=== PATIENT | female | born 1945 | race Caucasian/White ===

== ENCOUNTER 2017-09-30 09:46 | Inpatient (IN) | payer MEDICARE, OTHER ==
[2017-09-30 09:49] VITALS: BMI 28.7
--- NOTE | 2017-09-30 11:00 | ED PDOC ---
HPI: Altered Mental Status Chief Complaint (Provider): "shes acting differently this morning and appears more yello" History Per: Family (daughter and son ) History/Exam Limitations: Clinical Condition Usual Baseline: Alert Oriented, Ambulatory Exacerbating Factor(s): Liver Disease Additional Complaint(s): 71 y/o female, with a medical history remarkable for HTN, HLD, COPD, CAD (s/p stenting 2008) and recent diagnosis of cirrhosis presents with family via EMS for evaluation of altered mental status since this morning. Daughter at bedside reports that when she went to give her mother her medications, she noticed she was acting differently, not coherently responding, and not following commands or listening. Daughter also reports that she was much more "yellow" than she normally is. No reported seizure activity. No reported recent illnesses. Daughter reports she was acting normally and was in a state of baseline health last night before bed. Both children report she normally ambulates, performs daily activities on her own, and is conversive. No other concerns noticed. Was admitted 2 months ago at [facility] for similar symptoms, and had been seen by GI on 09/01/2017. 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 as per consult note) <Brian Salguero - Last Filed: 09/30/17 11:24> <aRisa Luna - Last Filed: 09/30/17 13:07> Time Seen by Provider: 09/30/17 10:28 Chief Complaint (Nursing): Altered Mental Status Supervising Attending Note - Supervising Attending Note The Documented history was done by the: Physician Assistant Press Operator The documented physical exam was done by the: Physician Assistant Press Operator The documented procedures were done by the: Physician Assistant Press Operator - Attestation: I have personally seen and examined this patient.: Yes I have fully participated in the care of the patient.: Yes I have reviewed all pertinent clinical information: Yes <Raisa Luna - Last Filed: 09/30/17 13:07> Past Medical History Reviewed: Historical Data, Nursing Documentation, Vital Signs Vital Signs: Last Vital Signs Temp 97.4 F L 09/30/17 09:48 Pulse 66 09/30/17 09:48 Resp 18 09/30/17 09:48 BP 115/72 09/30/17 09:48 Pulse Ox 98 09/30/17 09:48 - Medical History PMH: Arthritis, HTN, Hypercholesterolemia - Immunization History Hx Tetanus Toxoid Vaccination: No Hx Influenza Vaccination: No Hx Pneumococcal Vaccination: No <Brian Salguero - Last Filed: 09/30/17 11:24> Vital Signs: Last Vital Signs Temp 97.4 F L 09/30/17 09:48 Pulse 66 09/30/17 09:48 Resp 18 09/30/17 09:48 BP 115/72 09/30/17 09:48 Pulse Ox 98 09/30/17 11:25 - Family History Family History: States: No Known Family Hx <Raisa Luna - Last Filed: 09/30/17 13:07> - Home Medications Home Medications: Ambulatory Orders Medication Instructions Recorded Carvedilol [Coreg] 12.5 mg PO Q12 09/30/17 Clopidogrel [Plavix] 75 mg PO DAILY 09/30/17 Ezetimibe [Zetia] 10 mg PO DAILY 09/30/17 Lactulose [Generlac] 30 ml PO Q8 09/30/17 Levothyroxine [Synthroid] 200 mcg PO DAILY 09/30/17 [id number] Ethyl Esters 1 GM 2 gm PO Q12 09/30/17 [Lovaza] Simvastatin [Zocor] 20 mg PO HS 09/30/17 rifAXIMin [Xifaxan] 550 mg PO Q12 09/30/17 - Allergies Allergies/Adverse Reactions: Allergies Allergy/AdvReac Type Severity Reaction Status Date / Time aztreonam Allergy RASH Verified 09/30/17 09:50 Carbapenems Allergy RASH Verified 09/30/17 09:50 Cephalosporins Allergy RASH Verified 09/30/17 09:50 penicillamine Allergy RASH Verified 09/30/17 09:50 Penicillins Allergy RASH Verified 09/30/17 09:50 pineapple Allergy SWELLING Verified 09/30/17 09:50 Review of Systems Review Of Systems: ROS cannot be obtained secondary to pt's inabilty to answer questions. <Brian Salguero - Last Filed: 09/30/17 11:24> Physical Exam - Physical Exam Appears: Positive for: No Acute Distress Head Exam: Positive for: ATRAUMATIC, NORMAL INSPECTION, NORMOCEPHALIC Skin: Positive for: Warm, Dry, Jaundice Eye Exam: Positive for: EOMI, Scleral icterus. Negative for: Conjunctival injection ENT: Positive for: Pharynx Is (dry). Negative for: Nasal Congestion Neck: Positive for: Normal, Painless ROM, Supple. Negative for: Decreased ROM Cardiovascular/Chest: Positive for: Regular Rate, Rhythm, Chest Non Tender. Negative for: Gallop, JVD, Murmur, Bradycardia, Tachycardia, Friction Rub Respiratory: Positive for: Normal Breath Sounds. Negative for: Accessory Muscle Use, Crackles, Rales, Rhonchi, Wheezing, Respiratory Distress Pulses-Radial (L): 2+ Pulses-Radial (R): 2+ Gastrointestinal/Abdominal: Positive for: Bowel Sounds (normal), Organomegaly ( splenomegaly ), Asicites, Other (morbid truncal obesity ). 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 Does not obey commands. Spontaenous eye opening, withdraws to pain stimuli. GCS 12. ) . Negative for: Oriented, Aphasia <Brian Salguero - Last Filed: 09/30/17 11:24> - ECG O2 Sat by Pulse Oximetry: 98 - Progress ED Course And Treament: altered mental status/portosystemic encephalopathy -CBC -CMP -COAGS -AMMONIA -UA -UDS -SERUM ALC -VBG WITH LACTATE -MAG -PHOS -CALCIUM -EKG -NON CONTRAST HEAD CT -ABD U/S COMPLETE -40MG LACTULOSE -RE-EVALUATE <Brian Salguero - Last Filed: 09/30/17 11:24> - Laboratory Results Result Diagrams: 09/30/17 11:51 09/30/17 11:51 <Raisa Luna - Last Filed: 09/30/17 13:07> Medical Decision Making Medical Decision Making: case reviewed and discussed with resident physician. Agree with plans. Patient is admitted to medical service. <Raisa Luna - Last Filed: 09/30/17 13:07> Disposition <Brian Salguero - Last Filed: 09/30/17 11:24> - Patient ED Disposition Is Patient to be Admitted: Yes Doctor Will See Patient In The: Hospital - Disposition Disposition: Transfer of Care Disposition Time: 12:45 - Pt Status Changed To: Hospital Disposition Of: Inpatient - Admit Certification Admit to Inpatient:: After my assessment, the patient will require hospitalization for at least two midnights. This is because of the severity of symptoms shown, intensity of services needed, and/or the medical risk in this patient being treated as an outpatient. - POA Present On Arrival: None <Raisa Luna - Last Filed: 09/30/17 13:07> - Clinical Impression Clinical Impression: Hepatic encephalopathy - Disposition Condition: FAIR Forms: [employer] (Tajik)
[2017-09-30 11:27] LABS: VENOUS BLOOD GAS BASE EXCESS -0.9 mmol/L (0.0-2.0); VENOUS BLOOD GAS PCO2 31 mmHg (40-60); VENOUS BLOOD GAS PO2 49 mm/Hg (30-55); VENOUS BLOOD PH 7.46 (7.32-7.43)
--- NOTE | 2017-09-30 12:02 | CT ---
PROCEDURE: CT HEAD WITHOUT CONTRAST. HISTORY: AMS COMPARISON: None available. TECHNIQUE: Axial computed tomography images were obtained through the head/brain without intravenous contrast. Examination is degraded by patient motion an extensive streak artifacts. Radiation dose: Total exam DLP = 1647.75 mGy-cm. This CT exam was performed using one or more of the following dose reduction techniques: Automated exposure control, adjustment of the mA and/or kV according to patient size, and/or use of iterative reconstruction technique. FINDINGS: HEMORRHAGE: No intracranial hemorrhage. BRAIN: There are mild chronic microangiopathic changes. There is an old lacunar infarct/perivascular space in the right basal ganglia. There is no mass, mass effect or abnormal extra-axial fluid collection. VENTRICLES: There is mild age-related global parenchymal volume loss and proportionate enlargement of the ventricles and cortical sulci. CALVARIUM: The skull base and calvarium are normal. PARANASAL SINUSES: There is a small retention cyst/polyp in the left maxillary sinus. The remaining included paranasal sinuses are predominantly clear. MASTOID AIR CELLS: Predominantly clear. OTHER FINDINGS: None. IMPRESSION: No acute intracranial abnormality. Mild chronic microangiopathic changes and mild age-related global parenchymal volume loss.
[2017-09-30 12:03] LABS: PROTHROMBIN TIME 29.9 Seconds (9.8-13.1)
[2017-09-30 12:04] LABS: INR 2.6 (0.9-1.2)
[2017-09-30 12:11] LABS: ALB/GLOB RATIO 0.4 (1.0-2.1); ALBUMIN 2.2 g/dL (3.5-5.0); GFR AFRICAN-AMERICAN > 60; GFR NON-AFRICAN AMERICAN > 60
[2017-09-30 12:16] LABS: MEAN CELL VOLUME 94.8 fl (81.0-99.0); MEAN CORPUSCULAR HEMOGLOBIN 31.8 pg (27.0-31.0); MEAN CORPUSCULAR HGB CONC 33.5 g/dL (33.0-37.0); RBC 2.84 Mil/uL (3.80-5.20); RED CELL DISTRIBUTION WIDTH 27.3 % (11.5-14.5)
[2017-09-30 12:21] LABS: ALT/SGPT 197 U/L (9-52); AST/SGOT 430 U/L (14-36); BLOOD UREA NITROGEN 24 mg/dl (7-17)
--- NOTE | 2017-09-30 12:56 | US ---
HISTORY: liver failure/ascites COMPARISON: None. TECHNIQUE: Grayscale imaging was performed. FINDINGS: LIVER: Measures 14.2 cm. There is coarse heterogeneous echotexture and nodular contour in the liver. No mass. No intrahepatic bile duct dilatation. GALLBLADDER: There are no gallstones, wall thickening or pericholecystic fluid. The sonographic Nichole's sign is negative. COMMON BILE DUCT: Measures 4.2 mm. No stones. No dilatation. PANCREAS: Normal in size. No mass. No ductal dilatation. RIGHT KIDNEY: Measures 10.9cm. Normal echogenicity. No calculus, mass, or hydronephrosis. LEFT KIDNEY: Measures 12.3cm. Normal echogenicity. No calculus, mass, or hydronephrosis. SPLEEN: There is mild splenomegaly. AORTA: No aneurysmal dilatation. IVC: Unremarkable. OTHER FINDINGS: There is moderate abdominal ascites. IMPRESSION: Cirrhosis of liver and moderate abdominal ascites Mild splenomegaly.
--- NOTE | 2017-09-30 18:05 | CARD ---
APPROVED REPORT EKG Measurement Heart [id number] <Conclusion> Normal sinus rhythm Low voltage QRS Borderline ECG
--- NOTE | 2017-09-30 22:16 | HP ---
HISTORY OF PRESENT ILLNESS: Ms. Collins is a 71-year-old female who was admitted via the emergency room because of alerted mental status. She recently was discharged from [facility] after treatment for hepatic encephalopathy. She also has a history of hypertension, hyperlipidemia, COPD, coronary artery bypass graft, and status post stent placement. As per children and boyfriend, she was alright up until this morning where she became more confused and more jaundiced. She was recently discharged from [facility] and was placed on lactulose and on multiple medications, but symptoms however worsened this morning. She has no history of real alcohol use except for years ago, but recently was diagnosed with hep cirrhosis secondary to DIAZ as per consult's notes. FAMILY HISTORY: Nonrevealing. SOCIAL HISTORY: Socially, she does not drink or smoke. REVIEW OF SYSTEMS: Essentially unremarkable. PHYSICAL EXAMINATION: GENERAL: The patient is alert and oriented, appears to be bed and confused. VITAL SIGNS: Blood pressure 115/72 with a pulse of 66, respiratory rate 18, she is afebrile, and O2 sat 97.4 degrees Fahrenheit. SKIN: Shows jaundice. HEENT: Scleral icterus. Mouth shows dry mucosa. LUNGS: Clear. HEART: Regular. No murmur or gallops. BREASTS: Normal. ABDOMEN: Distended with ascites. EXTREMITIES: Show 1+ pitting pedal edema. CENTRAL NERVOUS SYSTEM: Remarkable for confusion. Otherwise, no gross deficits. LABORATORY DATA: Remarkable for WBC of 3, hemoglobin 9, and platelet count 55,000. Sodium 135, potassium 5.1, BUN of 24, creatinine 0.8, and ammonia level 167. CT scan of the head shows no acute intracranial abnormality except for microangiopathic changes. Ultrasound of abdomen cirrhosis of the liver, moderate abdominal ascites, and splenomegaly. IMPRESSION: Acute hepatic encephalopathy, history of coronary artery disease, history of hypertension, and history of cirrhosis of the liver. PLAN: Lactulose therapy, gastroenterology evaluation, monitor closely in telemetry, we will repeat ammonia level, hold off p.o. medications, and further therapy will depend on findings. Kenji Fletcher MD [facility] # [id number]
[2017-10-01] MEDS ORDERED: Pneumococcal 23-Valent Vaccine IM ONE (06:30)
[2017-10-01 07:45] LABS: BASO % 0.8 % (0.0-2.0); EOS # 0.1 K/uL (0.0-0.7); EOS % 2.4 % (0.0-4.0); HEMOGLOBIN 8.3 g/dL (12.0-16.0); LYMPH % 33.3 % (20.0-40.0); MEAN CELL VOLUME 96.3 fl (81.0-99.0); MEAN CORPUSCULAR HEMOGLOBIN 31.6 pg (27.0-31.0); MEAN CORPUSCULAR HGB CONC 32.9 g/dL (33.0-37.0); MEAN PLATELET VOLUME 10.4 fl (7.2-11.7); MONO # 0.5 K/uL (0.0-0.8); MONO % 15.9 % (0.0-10.0); NEUT # 1.5 K/uL (1.8-7.0); NEUT % 47.6 % (50.0-75.0); NRBC % 0.3 % (0.0-0.0); RBC 2.62 Mil/uL (3.80-5.20); RED CELL DISTRIBUTION WIDTH 26.7 % (11.5-14.5); WHITE BLOOD COUNT 3.1 K/uL (4.8-10.8)
[2017-10-01 07:58] LABS: BLOOD UREA NITROGEN 28 mg/dl (7-17); GFR AFRICAN-AMERICAN > 60; GFR NON-AFRICAN AMERICAN > 60
--- NOTE | 2017-10-01 10:06 | CP.PCM.PN ---
Subjective - Date & Time of Evaluation Date of Evaluation: 10/01/17 Time of Evaluation: 10:06 - Subjective Subjective: AWAKE/ALERT AND ORIENTED X 3 DAUGHTER AT BEDSIDE CASE DISCUSSED WITH PT AND DAUGHTER Objective - Vital Signs/Intake and Output Vital Signs (last 24 hours): Temp Pulse Resp BP Pulse Ox 98.5 F 77 18 102/57 L 97 10/01/17 08:19 10/01/17 08:19 10/01/17 08:19 10/01/17 08:19 10/01/17 08:19 - Medications Medications: Current Medications Folic Acid (Folic Acid) 1 mg PO DAILY [facility] Last Admin: 10/01/17 09:08 Dose: 1 mg Lactulose (Enulose) 20 gm PO Q8 [facility] Last Admin: 10/01/17 09:07 Dose: 20 gm Thiamine HCl (Vitamin B1 Tab) 100 mg PO DAILY [facility] Last Admin: 10/01/17 09:08 Dose: 100 mg - Labs Labs: 10/01/17 03:48 10/01/17 06:50 PT 29.9 Seconds (9.8-13.1) H 09/30/17 11:51 INR 2.6 (0.9-1.2) H 09/30/17 11:51 - Constitutional Appears: Chronically Ill - Head Exam Head Exam: ATRAUMATIC, NORMAL INSPECTION, NORMOCEPHALIC - Eye Exam Eye Exam: EOMI, Normal appearance, PERRL Pupil Exam: NORMAL ACCOMODATION, PERRL - ENT Exam ENT Exam: Mucous Membranes Moist, Normal Exam - Neck Exam Neck Exam: Full ROM, Normal Inspection. absent: Lymphadenopathy - Respiratory Exam Respiratory Exam: Clear to Ausculation Bilateral, NORMAL BREATHING PATTERN - Cardiovascular Exam Cardiovascular Exam: REGULAR RHYTHM, +S1, +S2. absent: Murmur - GI/Abdominal Exam GI & Abdominal Exam: Distended, Soft, Normal Bowel Sounds. absent: Tenderness - Rectal Exam Rectal Exam: NORMAL INSPECTION - Extremities Exam Extremities Exam: Full ROM, Normal Capillary Refill, Normal Inspection, Pedal Edema. absent: Joint Swelling - Back Exam Back Exam: NORMAL INSPECTION - Neurological Exam Neurological Exam: Alert, Awake, CN II-XII Intact, Normal Gait, Oriented x3 - Psychiatric Exam Psychiatric exam: Normal Affect, Normal Mood - Skin Skin Exam: Dry, Intact, Normal Color, Warm Assessment and Plan - Assessment and Plan (Free Text) Assessment: HEPATIC ENCEPHALOPATHY PANCYTOPWENIA HX OF HTN CIRRHOSIS OF THE LIVER Plan: CONTINUE RX ORDERED ADVANCE DIET HEME AND GI CONSULTS
--- NOTE | 2017-10-01 15:22 | CON ---
REFERRED BY: Kenji Fletcher MD HISTORY OF PRESENT ILLNESS: This is a 71-year-old woman who a month or so ago was admitted at [facility] ([facility]) where she was for the first time diagnosed with cirrhosis and liver insufficiency. She has been seen at that time by Dr. Nolen and a followup on one occasion in the office with him as well. According to the family, she had been taking her medication that was prescribed, which included lactulose because she had been admitted at that time with hepatic encephalopathy. The patient was taking it, however, yesterday, she was brought into the Emergency Room with somnolence and exacerbation of her encephalopathy. At the time of my evaluation this morning, she is wide awake, alert and oriented x3 now as she has received significant amount of lactulose over the last 24 hours. She also states she is very hungry, but has very dry mouth. The patient denies any nausea or vomiting. She has been having diarrhea, but no blood per rectum or any melena. She does have some abdominal discomfort and her abdomen is distended, although family says it is less distended than it was just to see in a week ago as she was diagnosed with ascites at that time. According to the family, had no history prior to last month of any liver disease in the patient at all. She did have a history of coronary artery disease that had stenting in the past, but according to them there was no known history of liver disease. Before a month ago, she was diagnosed with cirrhosis, which seems to be at an advanced stage at this time. MEDICATIONS: Noted. ALLERGIES: SHE HAS SEVERAL ALLERGIES THAT WERE NOTED. PAST MEDICAL HISTORY: Apparently, she has history of coronary artery disease, she had stenting in the past. She has advanced cirrhosis with liver insufficiency even liver failure at this time. PAST SURGICAL HISTORY: Noncontributory. FAMILY HISTORY: Noncontributory. SOCIAL HISTORY: According to the family, she was not a drinker, only social alcohol in the past and no drug use or tobacco use. PHYSICAL EXAMINATION: GENERAL: She is a well-developed, jaundiced, elderly woman who has a large abdomen, who is lying comfortably in bed and seems somewhat short of breath, even if she is lying down. VITAL SIGNS: Stable though. ABDOMEN: Distended with fluid that is appreciated on exam. She has good bowel sounds and nontender. As mentioned, it is distended. SKIN: She has spider angiomata in the upper chest area and she is jaundiced. LABORATORY DATA: Her laboratories were reviewed, all of which are significant with advanced liver disease. White count today is 3.1 with H and H of 8.3 and 25.3, and platelet count down to 30,000. Her INR is up to 2.6. Her SMA-7 today is unremarkable except for BUN of 28. Her LFTs yesterday revealed bilirubin of 7 with an AST of , ALT of 197, her was 167, today is down to 43, her albumin is 2.2. She had an abdominal ultrasound yesterday, which showed moderate amount of abdominal ascites, cirrhotic appearing liver, and mild splenomegaly. There were no gallstones appreciated. IMPRESSION AND PLAN: A 71-year-old woman with advanced liver disease, unclear the cause of the cirrhosis at this point in time; however, she has failing liver as her bilirubin is up to 7, her INR is 2.6, platelets are down to 30,000, she has spider angiomata on exam, all consistent with advanced liver disease, cirrhosis, liver insufficiency as well as portal hypertension. I would continue the lactulose that has been ordered. I have added propanolol 10 mg p.o. t.i.d. to be given if the systolic blood pressure is over 90 in order to decrease portal pressure to see if that holds the situation. I was started on diuretics for the ascites, just low dose Aldactone 50 mg once daily, now with Lasix 20 mg once daily. I have also ordered supplemental vitamin K to reduce the INR conservatively. There is no evidence of active GI bleeding at this point in time. Hematology consult was called as well to evaluate the patient. We will advance her diet. Case was discussed with Dr. Fletcher. Darion Castellano MD
--- NOTE | 2017-10-01 18:52 | CP.PCM.CON ---
History of Present Illness - History of Present Illness History of Present Illness: 71 year old female with a history of HTN, HL, COPD, CAD s/p CABG, liver cirrhosis, admitted with hepatic encephalopathy, found to have pancytopenia. Per the patients son, she was recently discharged from [facility] for hepatic encephalopathy. He is unsure if she has had blood problems in the past. He notes her mental status has improved today. There is no overt evidence of bleeding. Past medical history: HTN, HL, COPD, CAD, liver cirrhosis Past surgical history: CABG, Family history: Denies hematologic and oncologic problems Social history: Denies tobacco, alcohol, and illicit drug use. Allergies: Several, see list Review of systems: All remaining review of systems including HEENT, cardiovascular, respiratory, gastrointestinal, genitourinary, musculoskeletal, dermatologic, neurologic, and psychiatric are negative unless mentioned in the HPI. Past Patient History - Past Medical History & Family History Past Medical History?: Yes - Past Social History Smoking Status: Former Smoker - CARDIAC Hx Cardiac Disorders: Yes - PULMONARY Hx Respiratory Disorders: Yes - NEUROLOGICAL Hx Neurological Disorder: Yes - RENAL Hx Chronic Kidney Disease: No - ENDOCRINE/METABOLIC Hx Endocrine Disorders: No - HEMATOLOGICAL/ONCOLOGICAL Hx Blood Disorders: No - INTEGUMENTARY Hx Dermatological Problems: No - MUSCULOSKELETAL/RHEUMATOLOGICAL Hx Musculoskeletal Disorders: Yes - GASTROINTESTINAL Other/Comment: liver cirrhosis diagnosed a month ago - GENITOURINARY/GYNECOLOGICAL Hx Genitourinary Disorders: No - PSYCHIATRIC Hx Substance Use: No - SURGICAL HISTORY Hx Surgeries: No Hx Coronary Stent: Yes (2008) - ANESTHESIA Hx Anesthesia: Yes Hx Anesthesia Reactions: No Meds Allergies/Adverse Reactions: Allergies Allergy/AdvReac Type Severity Reaction Status Date / Time aztreonam Allergy RASH Verified 09/30/17 09:50 Carbapenems Allergy RASH Verified 09/30/17 09:50 Cephalosporins Allergy RASH Verified 09/30/17 09:50 penicillamine Allergy RASH Verified 09/30/17 09:50 Penicillins Allergy RASH Verified 09/30/17 09:50 pineapple Allergy SWELLING Verified 09/30/17 09:50 - Medications Medications: Current Medications Folic Acid (Folic Acid) 1 mg PO DAILY [facility] Last Admin: 10/01/17 09:08 Dose: 1 mg Furosemide (Lasix) 20 mg PO DAILY [facility] Lactulose (Enulose) 20 gm PO Q8 [facility] Last Admin: 10/01/17 16:29 Dose: 20 gm Phytonadione (Vitamin K Tab) 5 mg PO DAILY [facility] Stop: 10/03/17 09:01 Last Admin: 10/01/17 11:08 Dose: 5 mg Propranolol HCl (Inderal) 10 mg PO TID [facility] Last Admin: 10/01/17 16:29 Dose: 10 mg Spironolactone (Aldactone) 50 mg PO DAILY [facility] Thiamine HCl (Vitamin B1 Tab) 100 mg PO DAILY [facility] Last Admin: 10/01/17 09:08 Dose: 100 mg Physical Exam - Head Exam Head Exam: ATRAUMATIC - Eye Exam Eye Exam: Scleral icterus - ENT Exam ENT Exam: Mucous Membranes Dry - Respiratory Exam Respiratory Exam: NORMAL BREATHING PATTERN - Cardiovascular Exam Cardiovascular Exam: +S1, +S2 - GI/Abdominal Exam GI & Abdominal Exam: Normal Bowel Sounds - Extremities Exam Extremities exam: Positive for: pedal edema - Neurological Exam Neurological exam: Oriented x3 - Psychiatric Exam Psychiatric exam: Normal Affect, Normal Mood - Skin Skin Exam: Warm Results - Vital Signs Recent Vital Signs: Last Vital Signs Temp 98.3 F 10/01/17 16:09 Pulse 73 10/01/17 16:29 Resp 20 10/01/17 16:09 BP 112/67 10/01/17 16:29 Pulse Ox 99 10/01/17 16:09 - Labs Result Diagrams: 10/01/17 03:48 10/01/17 06:50 Labs: Laboratory Results - last 24 hr 10/01/17 10/01/17 10/01/17 03:48 06:50 06:50 WBC 3.1 L RBC 2.62 L Hgb 8.3 L Hct 25.3 L MCV 96.3 MCH 31.6 H MCHC 32.9 L RDW 26.7 H Plt Count 30 L* D MPV 10.4 Neut % (Auto) 47.6 L Lymph % (Auto) 33.3 [place] % (Auto) 15.9 H Eos % (Auto) 2.4 Baso % (Auto) 0.8 Neut # (Auto) 1.5 L Lymph # (Auto) 1.0 [place] # (Auto) 0.5 Eos # (Auto) 0.1 Baso # (Auto) 0.0 Sodium 137 Potassium 4.5 Chloride 106 Carbon Dioxide 21 L Anion Gap 15 BUN 28 H Creatinine 0.8 Est GFR ( Amer) > 60 Est GFR (Non-Af Amer) > 60 Random Glucose 91 Calcium 8.0 L Ammonia 43 D Assessment & Plan (1) Pancytopenia Assessment and Plan: liver disease, thrombopoietin dysregulation splenomegaly with splenic sequestration will check iron, b12, folate stores Status: Acute (2) Splenomegaly Assessment and Plan: secondary to portal hypertension from liver cirrhosis Status: Acute (3) Coagulopathy Assessment and Plan: secondary to liver disease Thank you for this interesting consult. Status: Acute
[2017-10-02 08:12] LABS: BASO % 0.7 % (0.0-2.0); EOS # 0.1 K/uL (0.0-0.7); EOS % 2.6 % (0.0-4.0); HEMOGLOBIN 8.3 g/dL (12.0-16.0); LYMPH % 28.5 % (20.0-40.0); MEAN CELL VOLUME 95.6 fl (81.0-99.0); MEAN CORPUSCULAR HGB CONC 33.4 g/dL (33.0-37.0); MEAN PLATELET VOLUME 9.5 fl (7.2-11.7); MONO # 0.5 K/uL (0.0-0.8); MONO % 15.5 % (0.0-10.0); NEUT # 1.8 K/uL (1.8-7.0); NEUT % 52.7 % (50.0-75.0); NRBC % 0.2 % (0.0-0.0); RBC 2.61 Mil/uL (3.80-5.20); RED CELL DISTRIBUTION WIDTH 27.2 % (11.5-14.5); WHITE BLOOD COUNT 3.5 K/uL (4.8-10.8)
[2017-10-02 08:24] LABS: INR 2.8 (0.9-1.2); PARTIAL THROMBOPLASTIN TIME 57.1 Seconds (25.6-37.1); PROTHROMBIN TIME 31.6 Seconds (9.8-13.1)
[2017-10-02 08:29] LABS: ALB/GLOB RATIO 0.4 (1.0-2.1); ALBUMIN 1.9 g/dL (3.5-5.0); ALT/SGPT 181 U/L (9-52); AST/SGOT 314 U/L (14-36); BLOOD UREA NITROGEN 26 mg/dl (7-17); CALCIUM 7.7 mg/dL (8.4-10.2); GFR AFRICAN-AMERICAN > 60; GFR NON-AFRICAN AMERICAN > 60
--- NOTE | 2017-10-02 10:46 | CP.PCM.PN ---
Subjective - Date & Time of Evaluation Date of Evaluation: 10/02/17 Time of Evaluation: 10:48 - Subjective Subjective: MORE AWAKE AND ALERT TOLERATING DIET Objective - Vital Signs/Intake and Output Vital Signs (last 24 hours): Temp Pulse Resp BP Pulse Ox 97.9 F 71 20 100/47 L 93 L 10/02/17 08:00 10/02/17 08:00 10/02/17 08:00 10/02/17 09:32 10/02/17 08:00 - Medications Medications: Current Medications Folic Acid (Folic Acid) 1 mg PO DAILY [facility] Last Admin: 10/02/17 09:32 Dose: 1 mg Furosemide (Lasix) 20 mg PO DAILY [facility] Last Admin: 10/02/17 09:32 Dose: 20 mg Lactulose (Enulose) 20 gm PO Q8 [facility] Last Admin: 10/02/17 09:30 Dose: 20 gm Phytonadione (Vitamin K Tab) 5 mg PO DAILY [facility] Stop: 10/03/17 09:01 Last Admin: 10/02/17 09:32 Dose: 5 mg Propranolol HCl (Inderal) 10 mg PO TID [facility] Last Admin: 10/01/17 16:29 Dose: 10 mg Spironolactone (Aldactone) 50 mg PO DAILY [facility] Thiamine HCl (Vitamin B1 Tab) 100 mg PO DAILY [facility] Last Admin: 10/02/17 09:32 Dose: 100 mg - Labs Labs: 10/02/17 07:18 10/02/17 07:18 PT 31.6 Seconds (9.8-13.1) H 10/02/17 07:18 INR 2.8 (0.9-1.2) H 10/02/17 07:18 APTT 57.1 Seconds (25.6-37.1) H 10/02/17 07:18 - Constitutional Appears: No Acute Distress - Head Exam Head Exam: ATRAUMATIC, NORMAL INSPECTION, NORMOCEPHALIC - Eye Exam Eye Exam: EOMI, Normal appearance, PERRL, Scleral icterus Pupil Exam: NORMAL ACCOMODATION, PERRL - ENT Exam ENT Exam: Mucous Membranes Moist, Normal Exam - Neck Exam Neck Exam: Full ROM, Normal Inspection. absent: Lymphadenopathy - Respiratory Exam Respiratory Exam: Clear to Ausculation Bilateral, NORMAL BREATHING PATTERN - Cardiovascular Exam Cardiovascular Exam: REGULAR RHYTHM, +S1, +S2. absent: Murmur - GI/Abdominal Exam GI & Abdominal Exam: Distended, Soft, Normal Bowel Sounds. absent: Tenderness - Rectal Exam Rectal Exam: NORMAL INSPECTION - Extremities Exam Extremities Exam: Full ROM, Normal Capillary Refill, Normal Inspection, Pedal Edema. 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
--- NOTE | 2017-10-02 11:36 | CP.PCM.PN ---
Subjective - Date & Time of Evaluation Date of Evaluation: 10/02/17 Time of Evaluation: 11:40 - Subjective Subjective: feeling better this morning remains jaundiced with abd distension PE: vss afebrile abd - softly distended with fluid +BS NT imp/plan : advanced liver disease with portal hypertension started diuretics and beta blockers along with fluid restriction Objective - Vital Signs/Intake and Output Vital Signs (last 24 hours): Temp Pulse Resp BP Pulse Ox 97.9 F 71 20 100/47 L 93 L 10/02/17 08:00 10/02/17 08:00 10/02/17 08:00 10/02/17 09:32 10/02/17 08:00 - Medications Medications: Current Medications Folic Acid (Folic Acid) 1 mg PO DAILY [facility] Last Admin: 10/02/17 09:32 Dose: 1 mg Furosemide (Lasix) 20 mg PO DAILY [facility] Last Admin: 10/02/17 09:32 Dose: 20 mg Lactulose (Enulose) 20 gm PO Q8 [facility] Last Admin: 10/02/17 09:30 Dose: 20 gm Propranolol HCl (Inderal) 10 mg PO TID [facility] Last Admin: 10/01/17 16:29 Dose: 10 mg Spironolactone (Aldactone) 50 mg PO DAILY [facility] Thiamine HCl (Vitamin B1 Tab) 100 mg PO DAILY [facility] Last Admin: 10/02/17 09:32 Dose: 100 mg - Labs Labs: 10/02/17 07:18 10/02/17 07:18 PT 31.6 Seconds (9.8-13.1) H 10/02/17 07:18 INR 2.8 (0.9-1.2) H 10/02/17 07:18 APTT 57.1 Seconds (25.6-37.1) H 10/02/17 07:18
[2017-10-02 19:58] LABS: FOLATE 13.6 ng/mL
--- NOTE | 2017-10-02 22:10 | CP.PCM.PN ---
Subjective - Date & Time of Evaluation Date of Evaluation: 10/02/17 Time of Evaluation: 20:00 - Subjective Subjective: Mental status improved Objective - Vital Signs/Intake and Output Vital Signs (last 24 hours): Temp Pulse Resp BP Pulse Ox 98.1 F 71 20 119/61 94 L 10/02/17 19:13 10/02/17 19:13 10/02/17 19:13 10/02/17 19:13 10/02/17 19:13 - Medications Medications: Current Medications Folic Acid (Folic Acid) 1 mg PO DAILY [facility] Last Admin: 10/02/17 09:32 Dose: 1 mg Furosemide (Lasix) 20 mg PO DAILY [facility] Last Admin: 10/02/17 09:32 Dose: 20 mg Iron Sucrose 200 mg/ Sodium (Chloride) 110 mls @ 110 mls/hr IVPB DAILY [facility] Stop: 10/07/17 15:36 Last Admin: 10/02/17 18:18 Dose: 110 mls/hr Lactulose (Enulose) 20 gm PO Q8 [facility] Last Admin: 10/02/17 16:00 Dose: 20 gm Propranolol HCl (Inderal) 10 mg PO TID [facility] Last Admin: 10/02/17 18:19 Dose: 10 mg Spironolactone (Aldactone) 50 mg PO DAILY [facility] Last Admin: 10/02/17 09:30 Dose: 50 mg Thiamine HCl (Vitamin B1 Tab) 100 mg PO DAILY [facility] Last Admin: 10/02/17 09:32 Dose: 100 mg - Labs Labs: 10/02/17 07:18 10/02/17 07:18 PT 31.6 Seconds (9.8-13.1) H 10/02/17 07:18 INR 2.8 (0.9-1.2) H 10/02/17 07:18 APTT 57.1 Seconds (25.6-37.1) H 10/02/17 07:18 - Head Exam Head Exam: ATRAUMATIC - Eye Exam Eye Exam: Scleral icterus - ENT Exam ENT Exam: Mucous Membranes Dry - Respiratory Exam Respiratory Exam: NORMAL BREATHING PATTERN - Cardiovascular Exam Cardiovascular Exam: +S1, +S2 - GI/Abdominal Exam GI & Abdominal Exam: Normal Bowel Sounds Assessment and Plan (1) Pancytopenia Assessment & Plan: liver disease splenic sequestration iron deficiency; will start IV iron Status: Acute (2) Splenomegaly Status: Acute (3) Coagulopathy Status: Acute
--- NOTE | 2017-10-03 09:14 | CP.PCM.PN ---
Subjective - Date & Time of Evaluation Date of Evaluation: 10/03/17 Time of Evaluation: 09:14 - Subjective Subjective: AWAKE/ALERT AND ORIENTED NO ACUTE DISTRESS VSS Objective - Vital Signs/Intake and Output Vital Signs (last 24 hours): Temp Pulse Resp BP Pulse Ox 98.0 F 62 20 113/49 L 98 10/03/17 08:26 10/03/17 08:26 10/03/17 08:26 10/03/17 08:26 10/03/17 08:26 - Medications Medications: Current Medications Folic Acid (Folic Acid) 1 mg PO DAILY [facility] Last Admin: 10/03/17 08:07 Dose: 1 mg Furosemide (Lasix) 20 mg PO DAILY [facility] Last Admin: 10/02/17 09:32 Dose: 20 mg Iron Sucrose 200 mg/ Sodium (Chloride) 110 mls @ 110 mls/hr IVPB DAILY [facility] Stop: 10/07/17 15:36 Last Admin: 10/02/17 18:18 Dose: 110 mls/hr Lactulose (Enulose) 20 gm PO Q8 [facility] Last Admin: 10/03/17 08:08 Dose: 20 gm Propranolol HCl (Inderal) 10 mg PO TID [facility] Last Admin: 10/02/17 18:19 Dose: 10 mg Spironolactone (Aldactone) 50 mg PO DAILY [facility] Last Admin: 10/03/17 08:07 Dose: 50 mg Thiamine HCl (Vitamin B1 Tab) 100 mg PO DAILY [facility] Last Admin: 10/03/17 08:08 Dose: 100 mg - Labs Labs: 10/02/17 07:18 10/02/17 07:18 PT 31.6 Seconds (9.8-13.1) H 10/02/17 07:18 INR 2.8 (0.9-1.2) H 10/02/17 07:18 APTT 57.1 Seconds (25.6-37.1) H 10/02/17 07:18 - Constitutional Appears: No Acute Distress - Head Exam Head Exam: ATRAUMATIC, NORMAL INSPECTION, NORMOCEPHALIC - Eye Exam Eye Exam: EOMI, Normal appearance, PERRL Pupil Exam: NORMAL ACCOMODATION, PERRL - ENT Exam ENT Exam: Mucous Membranes Moist, Normal Exam - Neck Exam Neck Exam: Full ROM, Normal Inspection. absent: Lymphadenopathy - Respiratory Exam Respiratory Exam: Clear to Ausculation Bilateral, NORMAL BREATHING PATTERN - Cardiovascular Exam Cardiovascular Exam: REGULAR RHYTHM, +S1, +S2. absent: Murmur - GI/Abdominal Exam GI & Abdominal Exam: Distended, Soft, Normal Bowel Sounds. absent: Tenderness - Rectal Exam Rectal Exam: NORMAL INSPECTION - Extremities Exam Extremities Exam: Full ROM, Normal Capillary Refill, Normal Inspection, Pedal Edema. absent: Joint Swelling - Back Exam Back Exam: NORMAL INSPECTION - Neurological Exam Neurological Exam: Alert, Awake, CN II-XII Intact, Normal Gait, Oriented x3 - Psychiatric Exam Psychiatric exam: Normal Affect, Normal Mood - Skin Skin Exam: Dry, Intact, Normal Color, Warm Assessment and Plan - Assessment and Plan (Free Text) Assessment: HEPATIC ENCEPHALOPATHY IMPROVED PANCYTOPENIA Plan: CONTINUE RX ORDERED MANAGER IMAGE FOR D/C PLANNING
--- NOTE | 2017-10-03 13:28 | CARD ---
APPROVED REPORT EKG Measurement Heart [id number] <Conclusion> Sinus rhythm with 1st degree AV block with premature supraventricular complexes Low voltage QRS Cannot rule out Anterior infarct, age undetermined Abnormal ECG
[2017-10-03 15:24] LABS: INR 3.2 (0.9-1.2); PROTHROMBIN TIME 36.1 Seconds (9.8-13.1)
[2017-10-03 15:25] LABS: PARTIAL THROMBOPLASTIN TIME 69.6 Seconds (25.6-37.1)
[2017-10-03 15:27] LABS: HEMOGLOBIN 8.7 g/dL (12.0-16.0); MEAN CELL VOLUME 96.5 fl (81.0-99.0); MEAN CORPUSCULAR HEMOGLOBIN 32.3 pg (27.0-31.0); MEAN CORPUSCULAR HGB CONC 33.5 g/dL (33.0-37.0); RBC 2.7 Mil/uL (3.80-5.20); RED CELL DISTRIBUTION WIDTH 26.3 % (11.5-14.5); WHITE BLOOD COUNT 4.4 K/uL (4.8-10.8)
[2017-10-03] MEDS: Bacitracin 500 Units/gm Oint Foilpak UD TOP SCH ×2 (15:30→16:30)
[2017-10-03 15:56] LABS: ALB/GLOB RATIO 0.3 (1.0-2.1); ALBUMIN 1.9 g/dL (3.5-5.0); ALT/SGPT 174 U/L (9-52); AST/SGOT 285 U/L (14-36); BLOOD UREA NITROGEN 19 mg/dl (7-17); CALCIUM 7.8 mg/dL (8.4-10.2); GFR AFRICAN-AMERICAN > 60; GFR NON-AFRICAN AMERICAN > 60
[2017-10-04 05:46] LABS: BASO % 0.9 % (0.0-2.0); EOS # 0.1 K/uL (0.0-0.7); EOS % 3.5 % (0.0-4.0); HEMOGLOBIN 8.4 g/dL (12.0-16.0); LYMPH # 1.1 K/uL (1.0-4.3); MEAN CELL VOLUME 96.9 fl (81.0-99.0); MEAN CORPUSCULAR HEMOGLOBIN 32.4 pg (27.0-31.0); MEAN CORPUSCULAR HGB CONC 33.4 g/dL (33.0-37.0); MEAN PLATELET VOLUME 9.4 fl (7.2-11.7); MONO # 0.5 K/uL (0.0-0.8); MONO % 15.5 % (0.0-10.0); NEUT # 1.6 K/uL (1.8-7.0); NEUT % 48.1 % (50.0-75.0); NRBC % 0.3 % (0.0-0.0); RBC 2.59 Mil/uL (3.80-5.20); RED CELL DISTRIBUTION WIDTH 26.2 % (11.5-14.5); WHITE BLOOD COUNT 3.4 K/uL (4.8-10.8)
[2017-10-04 05:49] LABS: ALB/GLOB RATIO 0.4 (1.0-2.1); ALBUMIN 2.2 g/dL (3.5-5.0); ALT/SGPT 163 U/L (9-52); AST/SGOT 264 U/L (14-36); BLOOD UREA NITROGEN 16 mg/dl (7-17); CALCIUM 8.1 mg/dL (8.4-10.2); GFR AFRICAN-AMERICAN > 60; GFR NON-AFRICAN AMERICAN > 60
[2017-10-04 05:55] LABS: INR 2.4 (0.9-1.2); PARTIAL THROMBOPLASTIN TIME 52.9 Seconds (25.6-37.1); PROTHROMBIN TIME 27.4 Seconds (9.8-13.1)
--- NOTE | 2017-10-04 08:26 | CP.PCM.PN ---
Subjective - Date & Time of Evaluation Date of Evaluation: 10/04/17 Time of Evaluation: 08:27 - Subjective Subjective: AWAKE/ALERT AND ORIENTED X 3 CLINICALLY IMPROVED NO APPARENT DISTRESS Objective - Vital Signs/Intake and Output Vital Signs (last 24 hours): Temp Pulse Resp BP Pulse Ox 98.6 F 70 18 153/70 H 97 10/04/17 08:11 10/04/17 08:11 10/04/17 08:11 10/04/17 08:11 10/04/17 08:11 - Medications Medications: Current Medications Bacitracin (Bacitracin) 1 ea TOP TID [facility] Last Admin: 10/03/17 16:30 Dose: Not Given Folic Acid (Folic Acid) 1 mg PO DAILY [facility] Last Admin: 10/03/17 08:07 Dose: 1 mg Furosemide (Lasix) 20 mg PO DAILY [facility] Last Admin: 10/03/17 09:24 Dose: 20 mg Iron Sucrose 200 mg/ Sodium (Chloride) 110 mls @ 110 mls/hr IVPB DAILY [facility] Stop: 10/07/17 15:36 Last Admin: 10/03/17 13:25 Dose: 110 mls/hr Lactulose (Enulose) 20 gm PO Q8 [facility] Last Admin: 10/04/17 01:00 Dose: 20 gm Propranolol HCl (Inderal) 10 mg PO TID [facility] Last Admin: 10/03/17 18:42 Dose: 10 mg Spironolactone (Aldactone) 50 mg PO DAILY [facility] Last Admin: 10/03/17 08:07 Dose: 50 mg Thiamine HCl (Vitamin B1 Tab) 100 mg PO DAILY [facility] Last Admin: 10/03/17 08:08 Dose: 100 mg - Labs Labs: 10/04/17 04:20 10/04/17 04:20 PT 27.4 Seconds (9.8-13.1) H D 10/04/17 04:20 INR 2.4 (0.9-1.2) H D 10/04/17 04:20 APTT 52.9 Seconds (25.6-37.1) H D 10/04/17 04:20 - Constitutional Appears: Chronically Ill - Head Exam Head Exam: ATRAUMATIC, NORMAL INSPECTION, NORMOCEPHALIC - Eye Exam Eye Exam: EOMI, Normal appearance, PERRL, Scleral icterus Pupil Exam: NORMAL ACCOMODATION, PERRL - ENT Exam ENT Exam: Mucous Membranes Moist, Normal Exam - Neck Exam Neck Exam: Full ROM, Normal Inspection. absent: Lymphadenopathy - Respiratory Exam Respiratory Exam: Clear to Ausculation Bilateral, NORMAL BREATHING PATTERN - Cardiovascular Exam Cardiovascular Exam: REGULAR RHYTHM, +S1, +S2. absent: Murmur - GI/Abdominal Exam GI & Abdominal Exam: Distended, Soft, Tenderness, Normal Bowel Sounds Additional comments: ASCITES - Rectal Exam Rectal Exam: NORMAL INSPECTION - Extremities Exam Extremities Exam: Full ROM, Normal Capillary Refill, Normal Inspection, Pedal Edema. 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
[2017-10-04] MEDS: Bacitracin 500 Units/gm Oint Foilpak UD TOP SCH ×2 (08:31→14:58)
[2017-10-04 09:21] LABS: HDL CHOLESTEROL 7 MG/DL (30-70)
--- NOTE | 2017-10-04 09:24 | CP.PCM.PN ---
Subjective - Date & Time of Evaluation Date of Evaluation: 10/04/17 Time of Evaluation: 09:22 - Subjective Subjective: doing well Objective - Vital Signs/Intake and Output Vital Signs (last 24 hours): Temp Pulse Resp BP Pulse Ox 98.6 F 70 18 153/70 H 97 10/04/17 08:11 10/04/17 08:30 10/04/17 08:11 10/04/17 08:31 10/04/17 08:11 - Medications Medications: Current Medications Bacitracin (Bacitracin) 1 ea TOP TID [facility] Last Admin: 10/04/17 08:31 Dose: 1 ea Folic Acid (Folic Acid) 1 mg PO DAILY [facility] Last Admin: 10/04/17 08:31 Dose: 1 mg Furosemide (Lasix) 20 mg PO DAILY [facility] Last Admin: 10/04/17 08:31 Dose: 20 mg Iron Sucrose 200 mg/ Sodium (Chloride) 110 mls @ 110 mls/hr IVPB DAILY [facility] Stop: 10/07/17 15:36 Last Admin: 10/03/17 13:25 Dose: 110 mls/hr Lactulose (Enulose) 20 gm PO Q8 [facility] Last Admin: 10/04/17 08:30 Dose: 20 gm Propranolol HCl (Inderal) 10 mg PO TID [facility] Last Admin: 10/04/17 08:30 Dose: 10 mg Spironolactone (Aldactone) 50 mg PO DAILY [facility] Last Admin: 10/04/17 08:31 Dose: 50 mg Thiamine HCl (Vitamin B1 Tab) 100 mg PO DAILY [facility] Last Admin: 10/04/17 08:31 Dose: 100 mg - Labs Labs: 10/04/17 04:20 10/04/17 04:20 PT 27.4 Seconds (9.8-13.1) H D 10/04/17 04:20 INR 2.4 (0.9-1.2) H D 10/04/17 04:20 APTT 52.9 Seconds (25.6-37.1) H D 10/04/17 04:20 - Eye Exam Eye Exam: Scleral icterus - Respiratory Exam Respiratory Exam: Clear to Ausculation Bilateral, NORMAL BREATHING PATTERN - Cardiovascular Exam Cardiovascular Exam: REGULAR RHYTHM - GI/Abdominal Exam GI & Abdominal Exam: Soft, Normal Bowel Sounds Assessment and Plan - Assessment and Plan (Free Text) Assessment: 71 yo female with decompensated cirrhosis continue lactulose, titrate to 3-4 B< daily continue diuretics dc planning when able
[2017-10-04 10:07] LABS: LDL CHOLESTEROL < 30 mg/dL (0-129)
--- NOTE | 2017-10-04 11:25 | CP.PCM.PN ---
Subjective - Date & Time of Evaluation Date of Evaluation: 10/04/17 Time of Evaluation: 15:00 - Subjective Subjective: Feeling better, mental status improved. Objective - Vital Signs/Intake and Output Vital Signs (last 24 hours): Temp Pulse Resp BP Pulse Ox 98.6 F 70 18 153/70 H 97 10/04/17 08:11 10/04/17 08:30 10/04/17 08:11 10/04/17 08:31 10/04/17 08:11 - Medications Medications: Current Medications Bacitracin (Bacitracin) 1 ea TOP TID [facility] Last Admin: 10/04/17 08:31 Dose: 1 ea Folic Acid (Folic Acid) 1 mg PO DAILY [facility] Last Admin: 10/04/17 08:31 Dose: 1 mg Furosemide (Lasix) 20 mg PO DAILY [facility] Last Admin: 10/04/17 08:31 Dose: 20 mg Iron Sucrose 200 mg/ Sodium (Chloride) 110 mls @ 110 mls/hr IVPB DAILY [facility] Stop: 10/07/17 15:36 Last Admin: 10/04/17 10:58 Dose: 110 mls/hr Lactulose (Enulose) 20 gm PO Q8 [facility] Last Admin: 10/04/17 08:30 Dose: 20 gm Propranolol HCl (Inderal) 10 mg PO TID [facility] Last Admin: 10/04/17 08:30 Dose: 10 mg Spironolactone (Aldactone) 50 mg PO DAILY [facility] Last Admin: 10/04/17 08:31 Dose: 50 mg Thiamine HCl (Vitamin B1 Tab) 100 mg PO DAILY [facility] Last Admin: 10/04/17 08:31 Dose: 100 mg - Labs Labs: 10/04/17 04:20 10/04/17 04:20 PT 27.4 Seconds (9.8-13.1) H D 10/04/17 04:20 INR 2.4 (0.9-1.2) H D 10/04/17 04:20 APTT 52.9 Seconds (25.6-37.1) H D 10/04/17 04:20 - Head Exam Head Exam: ATRAUMATIC - Eye Exam Eye Exam: Normal appearance - ENT Exam ENT Exam: Mucous Membranes Dry - Respiratory Exam Respiratory Exam: NORMAL BREATHING PATTERN - Cardiovascular Exam Cardiovascular Exam: +S1, +S2 - GI/Abdominal Exam GI & Abdominal Exam: Normal Bowel Sounds - Extremities Exam Extremities Exam: Pedal Edema Assessment and Plan (1) Pancytopenia Assessment & Plan: secondary to liver disease, splenic sequestration iron deficiency s/p IV iron Status: Acute (2) Splenomegaly Assessment & Plan: secondary to pHTN Status: Acute (3) Coagulopathy Assessment & Plan: liver disease Status: Acute
[2017-10-04 16:17] VITALS: BP 117/70; PULSE 61; RESP 18; TEMP 98.1; O2SAT 98
--- NOTE | 2017-10-05 10:36 | CP.PCM.DIS ---
Provider - Provider Date of Admission: 09/30/17 12:54 Attending physician: Kenji Fletcher MD Time Spent in preparation of Discharge (in minutes): 30 Diagnosis - Discharge Diagnosis (1) Coagulopathy Status: Acute (2) Hepatic encephalopathy Status: Acute (3) Pancytopenia Status: Acute (4) Splenomegaly Status: Acute Hospital Course - Lab Results Lab Results: Most Recent Lab Values WBC 3.4 K/uL (4.8-10.8) L 10/04/17 04:20 RBC 2.59 Mil/uL (3.80-5.20) L 10/04/17 04:20 Hgb 8.4 g/dL (12.0-16.0) L 10/04/17 04:20 Hct 25.1 % (34.0-47.0) L 10/04/17 04:20 MCV 96.9 fl (81.0-99.0) 10/04/17 04:20 MCH 32.4 pg (27.0-31.0) H 10/04/17 04:20 MCHC 33.4 g/dL (33.0-37.0) 10/04/17 04:20 RDW 26.2 % (11.5-14.5) H 10/04/17 04:20 Plt Count 31 K/uL (130-400) L 10/04/17 04:20 MPV 9.4 fl (7.2-11.7) 10/04/17 04:20 Neut % (Auto) 48.1 % (50.0-75.0) L 10/04/17 04:20 Lymph % (Auto) 32.0 % (20.0-40.0) 10/04/17 04:20 [place] % (Auto) 15.5 % (0.0-10.0) H 10/04/17 04:20 Eos % (Auto) 3.5 % (0.0-4.0) 10/04/17 04:20 Baso % (Auto) 0.9 % (0.0-2.0) 10/04/17 04:20 Neut # (Auto) 1.6 K/uL (1.8-7.0) L 10/04/17 04:20 Lymph # (Auto) 1.1 K/uL (1.0-4.3) 10/04/17 04:20 [place] # (Auto) 0.5 K/uL (0.0-0.8) 10/04/17 04:20 Eos # (Auto) 0.1 K/uL (0.0-0.7) 10/04/17 04:20 Baso # (Auto) 0.0 K/uL (0.0-0.2) 10/04/17 04:20 Retic Count 3.0 % (0.5-1.5) H 10/02/17 07:18 PT 27.4 Seconds (9.8-13.1) H D 10/04/17 04:20 INR 2.4 (0.9-1.2) H D 10/04/17 04:20 APTT 52.9 Seconds (25.6-37.1) H D 10/04/17 04:20 pO2 49 mm/Hg (30-55) 09/30/17 11:22 VBG pH 7.46 (7.32-7.43) H 09/30/17 11:22 VBG pCO2 31 mmHg (40-60) L 09/30/17 11:22 VBG HCO3 23.9 mmol/L 09/30/17 11:22 VBG Total CO2 23.0 mmol/L (22-28) 09/30/17 11:22 VBG O2 Sat (Calc) 87.4 % (40-65) H 09/30/17 11:22 VBG Base Excess -0.9 mmol/L (0.0-2.0) L 09/30/17 11:22 VBG Potassium 5.1 mmol/L (3.6-5.2) 09/30/17 11:22 Sodium 131.0 mmol/L (132-148) L 09/30/17 11:22 Chloride 107.0 mmol/L (98-107) 09/30/17 11:22 Glucose 95 mg/dL (65-105) 09/30/17 11:22 Lactate 2.3 mmol/L (0.7-2.1) H 09/30/17 11:22 FiO2 21.0 % 09/30/17 11:22 Sodium 138 mmol/l (132-148) 10/04/17 04:20 Potassium 4.5 MMOL/L (3.6-5.0) 10/04/17 04:20 Chloride 106 mmol/L (98-107) 10/04/17 04:20 Carbon Dioxide 21 mmol/L (22-30) L 10/04/17 04:20 Anion Gap 16 (10-20) 10/04/17 04:20 BUN 16 mg/dl (7-17) 10/04/17 04:20 Creatinine 0.6 mg/dl (0.7-1.2) L 10/04/17 04:20 Est GFR ( Amer) > 60 10/04/17 04:20 Est GFR (Non-Af Amer) > 60 10/04/17 04:20 POC Glucose (mg/dL) 100 mg/dL (65-110) 09/30/17 10:05 Random Glucose 90 mg/dL (65-105) 10/04/17 04:20 Calcium 8.1 mg/dL (8.4-10.2) L 10/04/17 04:20 Phosphorus 3.2 mg/dl (2.5-4.5) 09/30/17 11:51 Magnesium 1.9 MG/DL (1.6-2.3) 09/30/17 11:51 Ferritin 33.0 ng/Ml (11.1-264.0) 10/02/17 07:18 Total Bilirubin 7.2 mg/dl (0.2-1.3) H 10/04/17 04:20 AST 264 U/L (14-36) H 10/04/17 04:20 ALT 163 U/L (9-52) H 10/04/17 04:20 Alkaline Phosphatase 84 U/L (38-126) 10/04/17 04:20 Ammonia 33 umo/L (11-51) D 10/04/17 04:20 Total Protein 7.4 G/DL (6.3-8.2) 10/04/17 04:20 Albumin 2.2 g/dL (3.5-5.0) L 10/04/17 04:20 Globulin 5.2 gm/dL (2.2-3.9) H 10/04/17 04:20 Albumin/Globulin Ratio 0.4 (1.0-2.1) L 10/04/17 04:20 Triglycerides 69 mg/DL (0-149) 10/04/17 08:59 Cholesterol < 50 mg/dL (0-199) 10/04/17 08:59 LDL Cholesterol Direct < 30 mg/dL (0-129) 10/04/17 08:59 HDL Cholesterol 7 MG/DL (30-70) L 10/04/17 08:59 Vitamin B12 > 1000 pg/mL (239-931) H 10/02/17 07:18 Folate 13.6 ng/mL 10/02/17 07:18 Venous Blood Potassium 5.1 mmol/L (3.6-5.2) 09/30/17 11:22 Alcohol, Quantitative < 10 mg/dl (0-10) 09/30/17 11:51 Blood Type A POSITIVE 10/03/17 19:10 Blood Type Confirm A POSITIVE 10/03/17 19:23 Antibody Screen Negative 10/03/17 19:10 BBK History Checked No verified bt 10/03/17 19:10 - Hospital Course Hospital Course: CLINICALLY IMPROVED ALERT AND ORIENTED X 3 Discharge Exam - Head Exam Head Exam: ATRAUMATIC, NORMAL INSPECTION, NORMOCEPHALIC - Eye Exam Eye Exam: EOMI, Normal appearance, PERRL, Scleral icterus Pupil Exam: NORMAL ACCOMODATION, PERRL - GI/Abdominal Exam GI & Abdominal Exam: Distended, Normal Bowel Sounds - Rectal Exam Rectal Exam: NORMAL INSPECTION - Neurological Exam Neurological exam: Alert, CN II-XII Intact, Normal Gait, Oriented x3, Reflexes Normal - Psychiatric Exam Psychiatric exam: Normal Affect, Normal Mood - Skin Skin Exam: Dry, Intact, Normal Color, Warm Discharge Plan - Follow Up Plan Condition: FAIR Disposition: TRANSF TO SNF Additional Instructions: pt. cleared for discharge to [facility] today by , , cont. PT/OT Referrals: Rambo Benavidez MD [Staff Provider] - Kenji Fletcher MD [Staff Provider] -
--- NOTE | 2017-10-05 11:57 | CP.PCM.PN ---
Subjective - Date & Time of Evaluation Date of Evaluation: 10/03/17 Time of Evaluation: 19:00 - Subjective Subjective: Mental status improved Objective - Vital Signs/Intake and Output Vital Signs (last 24 hours): Temp Pulse Resp BP Pulse Ox 98.1 F 61 18 117/70 98 10/04/17 16:17 10/04/17 16:17 10/04/17 16:17 10/04/17 16:17 10/04/17 16:17 - Labs Labs: 10/04/17 04:20 10/04/17 04:20 PT 27.4 Seconds (9.8-13.1) H D 10/04/17 04:20 INR 2.4 (0.9-1.2) H D 10/04/17 04:20 APTT 52.9 Seconds (25.6-37.1) H D 10/04/17 04:20 - Head Exam Head Exam: ATRAUMATIC - Eye Exam Eye Exam: Normal appearance - ENT Exam ENT Exam: Mucous Membranes Dry - Respiratory Exam Respiratory Exam: NORMAL BREATHING PATTERN - Cardiovascular Exam Cardiovascular Exam: +S1, +S2 - GI/Abdominal Exam GI & Abdominal Exam: Normal Bowel Sounds Assessment and Plan (1) Pancytopenia Assessment & Plan: liver disease and splenic sequestration iron deficiency on IV iron Status: Acute (2) Splenomegaly Assessment & Plan: secondary to pHTN Status: Acute (3) Coagulopathy Assessment & Plan: liver disease Status: Acute
== END 2017-10-04 17:00 | DRG 442 ==
LOC: H.ER 09:46 → H.ERHOLD 12:54 → H.TEL 22:36
PROVIDERS: ADMIT Internal Medicine Pulmonary Disease; ATTEND Internal Medicine Pulmonary Disease
PROC: 3E0234Z Introduction of Serum, Toxoid and Vaccine into Muscle, Percutaneous Approach (ICD-10-PCS; 2017-10-01)
PROC: 30233K1 Transfusion of Nonautologous Frozen Plasma into Peripheral Vein, Percutaneous Approach (ICD-10-PCS; principal; 2017-10-03)
DX: K72.00 Acute and subacute hepatic failure without coma (principal); D61.818 Other pancytopenia; K76.6 Portal hypertension; R18.8 Other ascites; D68.4 Acquired coagulation factor deficiency; K74.69 Other cirrhosis of liver; K75.81 Nonalcoholic steatohepatitis (NASH); D73.2 Chronic congestive splenomegaly; I44.0 Atrioventricular block, first degree; I25.10 Atherosclerotic heart disease of native coronary artery without angina pectoris; I10 Essential (primary) hypertension; E78.5 Hyperlipidemia, unspecified; J44.9 Chronic obstructive pulmonary disease, unspecified; Z23 Encounter for immunization; Z79.02 Long term (current) use of antithrombotics/antiplatelets; Z95.1 Presence of aortocoronary bypass graft; Z95.5 Presence of coronary angioplasty implant and graft; Z87.891 Personal history of nicotine dependence; Z88.0 Allergy status to penicillin